=== PATIENT | male | born 1965 | race Caucasian/White ===

== ENCOUNTER 2021-12-09 12:36 | Emergency (ER) | payer OTHER ==
[~2021-12-09] VITALS: Ht 188 cm; Wt 155.6 kg
--- NOTE | 2021-12-09 12:42 | NUR ---
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 DENIES DIZZINESS & BLURRED VISION, EQUAL BILATERAL STRENGTH ON BOTH EXTREMITIES. PT STATED THAT HE HAS HAD NUMBNESS ON AND OFF FOR MONTHS. ATTACHED TO MONITOR, VITALS ARE WITHIN NORMAL LIMITS,NO RESP DISTRESS NOTED. PT C/O SWELLING OF LOWER EXTREMITIES. DR ROB AT BEDSIDE.
--- NOTE | 2021-12-09 12:50 | NUR ---
IV ESTABLISHED R AC 18G. LABS DRAWN AND COLLECTED AT BEDSIDE.
[2021-12-09 13:35] LABS: BASOPHILS # (AUTO) 0.1 K/uL (0.0-0.2); BASOPHILS % (AUTO) 0.8 % (0.0-2.0); EOSINOPHILS % (AUTO) 4.6 % (0.0-6.0); HEMATOCRIT 42 % (39-51); HEMOGLOBIN 14.3 g/dL (13.5-17.5); LYMPHOCYTES # (AUTO) 1.8 K/uL (0.8-4.8); LYMPHOCYTES % (AUTO) 24.7 % (20.0-44.0); MEAN CORPUSCULAR HGB CONC 34 g/dl (31.0-36.0); MEAN CORPUSCULAR VOLUME 90 fL (80-96); MONOCYTES # (AUTO) 0.5 K/uL (0.1-1.30); NEUTROPHILS # (AUTO) 4.5 K/uL (1.8-8.9); NEUTROPHILS % (AUTO) 62.9 % (43.0-81.0); PLATELET COUNT (AUTO) 183 K/uL (150-450); RED BLOOD CELL COUNT(AUTO) 4.66 MIL/uL (4.5-6.0); WHITE BLOOD COUNT (AUTO) 7.1 K/uL (4.3-11.0)
[2021-12-09 13:45] LABS: POTASSIUM 4.3 mmol/L (3.5-5.1)
--- NOTE | 2021-12-09 13:58 | NUR ---
PT RETURNED FROM [facility]IA [facility]
[2021-12-09 14:04] LABS: CALCIUM, SERUM 9.6 mg/dL (8.5-10.1)
[2021-12-09] MEDS ORDERED: KETOROLAC TROMETHAMINE INJ 30 MG/ML VIAL ONE (14:27)
[2021-12-09] MEDS ORDERED: CYCLOBENZAPRINE 10 MG TABLET ONE (14:27)
[2021-12-09] MEDS ORDERED: CYCLOBENZAPRINE 10 MG TABLET PO ONE (14:30)
[2021-12-09] MEDS ORDERED: KETOROLAC TROMETHAMINE INJ 30 MG/ML VIAL IV ONE (14:30)
--- NOTE | 2021-12-09 14:42 | NUR ---
ULTRASOUND AT BEDSIDE
--- NOTE | 2021-12-09 16:47 | NUR ---
CALLED [facility] [phone] ARLENE [phone] RI [id number] [id number] 96% WILL CALL US BACK.
[2021-12-09] MEDS ORDERED: CYCL5TAB PO (16:53)
--- NOTE | 2021-12-09 16:53 | NUR ---
DR. MOLINA FROM [facility] SPEAKING WITH DR. PARMAR.
[2021-12-09 17:01] VITALS: BP 133/81
--- NOTE | 2021-12-09 17:01 | NUR ---
IV removed. Catheter intact and site benign. Pressure and 4x4 applied to site. No bleeding noted.Patient discharged to home in stable condition. Written and verbal after care instructions given. Patient verbalizes understanding of instruction.
== END 2021-12-09 17:02 | disposition home or self-care (01) ==
LOC: ER 12:38
DX: M48.061 Spinal stenosis, lumbar region without neurogenic claudication (principal); I10 Essential (primary) hypertension; E78.00 Pure hypercholesterolemia, unspecified; M19.90 Unspecified osteoarthritis, unspecified site; Z98.890 Other specified postprocedural states
CPT/HCPCS: 36415; 70450; 72131; 80048; 85025; 93970; 99291; J1885